=== PATIENT | male | born 1970 | race Caucasian/White ===

== ENCOUNTER 2021-08-08 14:09 | Inpatient (IN) | payer BC ==
[2021-08-08] MEDS ORDERED: Acetaminophen 325 MG TAB ONE ×2 (15:03→15:08)
[2021-08-08] MEDS ORDERED: Ondansetron PF 4 MG/2 ML Vial ONE (15:03)
[2021-08-08] MEDS ORDERED: Dexamethasone 10 MG/ML VIAL ONE (15:03)
[2021-08-08] MEDS ORDERED: cefTRIAXone\\ROCEPHIN 2 GM VIAL ONE (15:03)
[2021-08-08 15:35] LABS: #Monocytes 0.1 10x3/uL (0.0-1.1); #Neutrophils 3.2 10x3/uL (1.5-8.4); %Lymphocytes 10.5 % (18.0-47.0); %Monocytes 3.5 % (0.0-10.0); %Neutrophils 84.9 % (40.0-75.0); Mean Corpuscular HGB CONC 33.1 g/dL (32.0-36.0); Mean Corpuscular Hemoglobin 29.5 pg (27.0-33.0); Mean Corpuscular Volume 89.2 fl (81.2-95.1); Platelet Count 195 10x3/uL (150-450); RBC Distribution Width 12.9 % (11.5-14.5); Red Blood Cell (RBC) Count 4.74 10x6/uL (4.32-5.72); White Blood Cell (WBC) Count 3.7 10x3/uL (3.5-10.5)
[2021-08-08 15:43] LABS: ALT (SGPT) 37 U/L (8-55); AST (SGOT) 67 U/L (5-34); Albumin 3.8 g/dL (3.5-5.0); Alkaline Phosphatase 46 U/L (40-110); Anion Gap 19 mmol/L (10-20); BUN (Urea Nitrogen) 14 mg/dL (8.9-20.6); Bilirubin, Total 0.6 mg/dL (0.2-1.2); CRP (Inflammatory) 8.42 mg/dL (= or < 0.5); Calc. Creatinine Clearance 0 mL/min (70-130); Calcium 8.2 mg/dL (7.8-10.44); Carbon Dioxide 21 mmol/L (22-29); Chloride 103 mmol/L (98-107); Globulin 2.7 g/dL (2.4-3.5); Glucose 125 mg/dL (70-105); Magnesium 2.1 mg/dL (1.6-2.6); Potassium 4.6 mmol/L (3.5-5.1); Protein, Total 6.5 g/dL (6.0-8.3); Sodium 138 mmol/L (136-145)
[2021-08-08 15:48] LABS: D-Dimer Test 1.21 mg/L FEU (0.19-0.50); INR-International Normal Ratio 1.1; PTT 29.1 sec (22.0-33.0); Prothrombin Time 11.7 sec (9.5-12.1)
[2021-08-08 15:49] LABS: Actual Bicarbonate (HCO3a) 21.6 mEq/L (22-28); Base Excess (BEa) -1.2 mEq/L (-2.0 to +3.0); CO2 Tension 30.6 mmHg (35.0-45.0); Calcium, Ionized (arterial) 1.11 mmol/L (1.12-1.30); Carboxyhemoglobin (COHb) 0.3 gm% (0.0-3.0); Hemoglobin (Hb) 13.3 g/dL (14.0-18.0); O2 Tension (PaO2), arterial 106.1 mmHg (80.0-100.0); Potassium - ABG Lab 3.6 mmol/L (3.70-5.30); Puncture Site RRA; pH, Arterial 7.47 (7.35-7.45)
[2021-08-08 16:01] LABS: CKMB 2.8 ng/mL (0-6.6)
[2021-08-08] MEDS ORDERED: Azithromycin 500 MG VIAL ONE (16:26)
[2021-08-08 16:35] LABS: SARS-CoV-2 NAA Rapid Test DETECTED (NotDetected)
[2021-08-08] MEDS ORDERED: Ondansetron ODT 4 MG TAB PO PRN (18:42)
[2021-08-08] MEDS ORDERED: Acetaminophen 325 MG TAB PO PRN (18:42)
[2021-08-08] MEDS ORDERED: Acetaminophen 650 MG Suppository PR PRN (18:42)
[2021-08-08] MEDS ORDERED: Guaifenesin DM 100-10/5 ML UDCUP PO PRN (18:42)
[2021-08-08] MEDS ORDERED: Ondansetron PF 4 MG/2 ML Vial IVP PRN (18:42)
[2021-08-08] MEDS ORDERED: Loperamide HCl 2 MG CAP PO PRN ×2 (18:42)
[2021-08-08] MEDS ORDERED: Ventolin HFA Inhaler 60 PUFF INHALER INH PRN (18:46)
[2021-08-08 20:15] LABS: CKMB 2.6 ng/mL (0-6.6)
[2021-08-08] MEDS ORDERED: Aspirin 81 mg Enteric Coated Tablet PO SCH (22:00)
[2021-08-08] MEDS ORDERED: Melatonin 3 MG TAB PO SCH (22:00)
[2021-08-08] MEDS ORDERED: Enoxaparin Sodium 40 MG/0.4 ML SYRINGE SC SCH (22:00)
[2021-08-08] MEDS ORDERED: Enoxaparin Sodium 40 MG/0.4 ML SYRINGE ONE (23:08)
[2021-08-08] MEDS ORDERED: Aspirin Chewable 81 MG TAB ONE (23:08)
[2021-08-09] MEDS ORDERED: Ventolin HFA Inhaler 60 PUFF INHALER ONE (02:42)
[2021-08-09 03:39] LABS: Hemoglobin 13.1 g/dL (13.5-17.5); Mean Corpuscular Hemoglobin 29.7 pg (27.0-33.0); Mean Platelet Volume 9.6 fl (7.4-10.4); Platelet Count 201 10x3/uL (150-450); RBC Distribution Width 12.9 % (11.5-14.5); Red Blood Cell (RBC) Count 4.41 10x6/uL (4.32-5.72); White Blood Cell (WBC) Count 2.1 10x3/uL (3.5-10.5)
[2021-08-09 03:44] LABS: MDiff Complete? YES; Manual Diff?? YES
[2021-08-09 03:51] LABS: Anion Gap 12 mmol/L (10-20); BUN (Urea Nitrogen) 16 mg/dL (8.9-20.6); Calc. Creatinine Clearance 0 mL/min (70-130); Calcium 8.8 mg/dL (7.8-10.44); Carbon Dioxide 25 mmol/L (22-29); Chloride 107 mmol/L (98-107); Glucose 152 mg/dL (70-105); Potassium 4.4 mmol/L (3.5-5.1); Sodium 140 mmol/L (136-145)
[2021-08-09 04:01] LABS: Band 1 % (5-11); Lymphocytes 10 % (21-51); Metamyelocyte 3 % (0-0); Monocytes 6 % (0-10); Neutrophil 74 % (42-75); Reactive Lymphocytes 6 % (0-10)
[2021-08-09 04:02] LABS: Platelet Morphology Comment Appears Adequate
[2021-08-09 08:46] VITALS: BMI 33.6
[2021-08-09] MEDS ORDERED: Enoxaparin Sodium 40 MG/0.4 ML SYRINGE SC SCH (09:00)
[2021-08-09] MEDS ORDERED: Dexamethasone 10 MG/ML VIAL SLOW IVP SCH (09:00)
[2021-08-09] MEDS: Aspirin 81 mg Enteric Coated Tablet PO SCH (09:21)
[2021-08-09] MEDS: Ascorbic Acid 500 mg Chewable Tablet PO SCH (09:22)
[2021-08-09] MEDS: BARICITINIB 2 MG TAB PO SCH (09:22)
[2021-08-09] MEDS: Enoxaparin Sodium 40 MG/0.4 ML SYRINGE SC SCH ×2 (09:22→21:16)
[2021-08-09] MEDS: Zinc Sulfate 220 MG CAP PO SCH (09:22)
[2021-08-09] MEDS: Melatonin 3 MG TAB PO SCH (21:16)
[2021-08-09] MEDS: Dexamethasone 20 MG/5 ML VIAL SLOW IVP SCH (21:16)
[2021-08-10 03:42] LABS: #Monocytes 0.5 10x3/uL (0.0-1.1); #Neutrophils 5.4 10x3/uL (1.5-8.4); %Basophils 0.2 % (0.0-2.0); %Lymphocytes 7.1 % (18.0-47.0); %Monocytes 7.1 % (0.0-10.0); %Neutrophils 84.3 % (40.0-75.0); Hemoglobin 12.7 g/dL (13.5-17.5); Mean Corpuscular HGB CONC 33.2 g/dL (32.0-36.0); Mean Corpuscular Hemoglobin 29.9 pg (27.0-33.0); Mean Corpuscular Volume 89.9 fl (81.2-95.1); Mean Platelet Volume 10.1 fl (7.4-10.4); Platelet Count 235 10x3/uL (150-450); Red Blood Cell (RBC) Count 4.25 10x6/uL (4.32-5.72); White Blood Cell (WBC) Count 6.4 10x3/uL (3.5-10.5)
[2021-08-10 03:54] LABS: Anion Gap 13 mmol/L (10-20); BUN (Urea Nitrogen) 21 mg/dL (8.9-20.6); Calc. Creatinine Clearance 133 mL/min (70-130); Calcium 8.5 mg/dL (7.8-10.44); Carbon Dioxide 25 mmol/L (22-29); Chloride 108 mmol/L (98-107); Glucose 128 mg/dL (70-105); Potassium 4.3 mmol/L (3.5-5.1); Sodium 142 mmol/L (136-145)
[2021-08-10] MEDS: Zinc Sulfate 220 MG CAP PO SCH (07:58)
[2021-08-10] MEDS: Aspirin 81 mg Enteric Coated Tablet PO SCH (07:58)
[2021-08-10] MEDS: Dexamethasone 20 MG/5 ML VIAL SLOW IVP SCH ×2 (07:58→19:53)
[2021-08-10] MEDS: Enoxaparin Sodium 40 MG/0.4 ML SYRINGE SC SCH ×2 (07:58→19:56)
[2021-08-10] MEDS: Ascorbic Acid 500 mg Chewable Tablet PO SCH (07:58)
[2021-08-10] MEDS: BARICITINIB 2 MG TAB PO SCH (07:58)
[2021-08-10] MEDS: Melatonin 3 MG TAB PO SCH (19:56)
[2021-08-11 05:07] LABS: Anion Gap 13 mmol/L (10-20); BUN (Urea Nitrogen) 22 mg/dL (8.9-20.6); Calc. Creatinine Clearance 147 mL/min (70-130); Calcium 8.3 mg/dL (7.8-10.44); Carbon Dioxide 24 mmol/L (22-29); Chloride 107 mmol/L (98-107); Glucose 120 mg/dL (70-105); Potassium 4.4 mmol/L (3.5-5.1); Sodium 140 mmol/L (136-145)
[2021-08-11 05:08] LABS: ALT (SGPT) 34 U/L (8-55); AST (SGOT) 34 U/L (5-34); Albumin 3.3 g/dL (3.5-5.0); Alkaline Phosphatase 44 U/L (40-110); Bilirubin, Direct 0.3 mg/dL (0.1-0.3); Bilirubin, Total 0.7 mg/dL (0.2-1.2); Protein, Total 5.9 g/dL (6.0-8.3)
[2021-08-11 06:03] LABS: MDiff Complete? YES
[2021-08-11 06:05] LABS: Band 5 % (5-11); Lymphocytes 11 % (21-51); Monocytes 5 % (0-10); Neutrophil 77 % (42-75); Reactive Lymphocytes 2 % (0-10)
[2021-08-11 06:07] LABS: Platelet Morphology Comment Appears Adequate; RBC Morphology Normal
[2021-08-11 07:06] LABS: Mean Corpuscular HGB CONC 33.2 g/dL (32.0-36.0); Mean Corpuscular Hemoglobin 29.8 pg (27.0-33.0); Mean Corpuscular Volume 89.7 fl (81.2-95.1); Mean Platelet Volume 9.9 fl (7.4-10.4); Platelet Count 273 10x3/uL (150-450); RBC Distribution Width 12.6 % (11.5-14.5); Red Blood Cell (RBC) Count 4.36 10x6/uL (4.32-5.72); White Blood Cell (WBC) Count 7.5 10x3/uL (3.5-10.5)
[2021-08-11] MEDS: Aspirin 81 mg Enteric Coated Tablet PO SCH (07:54)
[2021-08-11] MEDS: BARICITINIB 2 MG TAB PO SCH (07:54)
[2021-08-11] MEDS: Zinc Sulfate 220 MG CAP PO SCH (07:54)
[2021-08-11] MEDS: Ascorbic Acid 500 mg Chewable Tablet PO SCH (07:55)
[2021-08-11] MEDS: Enoxaparin Sodium 40 MG/0.4 ML SYRINGE SC SCH ×2 (07:57→19:40)
[2021-08-11] MEDS: Dexamethasone 20 MG/5 ML VIAL SLOW IVP SCH ×2 (07:57→19:40)
[2021-08-11] MEDS ORDERED: Dexamethasone 20 MG/5 ML VIAL SLOW IVP SCH (10:45)
[2021-08-11] MEDS: Melatonin 3 MG TAB PO SCH (19:39)
[2021-08-12 06:18] LABS: Anion Gap 11 mmol/L (10-20); BUN (Urea Nitrogen) 24 mg/dL (8.9-20.6); Calc. Creatinine Clearance 156 mL/min (70-130); Calcium 8.3 mg/dL (7.8-10.44); Carbon Dioxide 27 mmol/L (22-29); Chloride 108 mmol/L (98-107); Glucose 117 mg/dL (70-105); Potassium 4.3 mmol/L (3.5-5.1); Sodium 142 mmol/L (136-145)
[2021-08-12 07:04] LABS: #Monocytes 0.7 10x3/uL (0.0-1.1); #Neutrophils 7.1 10x3/uL (1.5-8.4); %Basophils 0.1 % (0.0-2.0); %Lymphocytes 6.3 % (18.0-47.0); %Monocytes 7.9 % (0.0-10.0); %Neutrophils 84.5 % (40.0-75.0); Hemoglobin 12.7 g/dL (13.5-17.5); Mean Corpuscular HGB CONC 33.2 g/dL (32.0-36.0); Mean Corpuscular Hemoglobin 30.1 pg (27.0-33.0); Mean Corpuscular Volume 90.8 fl (81.2-95.1); Mean Platelet Volume 10.8 fl (7.4-10.4); Platelet Count 269 10x3/uL (150-450); RBC Distribution Width 12.8 % (11.5-14.5); Red Blood Cell (RBC) Count 4.22 10x6/uL (4.32-5.72); White Blood Cell (WBC) Count 8.5 10x3/uL (3.5-10.5)
[2021-08-12] MEDS: BARICITINIB 2 MG TAB PO SCH (08:52)
[2021-08-12] MEDS: Aspirin 81 mg Enteric Coated Tablet PO SCH (08:52)
[2021-08-12] MEDS: Enoxaparin Sodium 40 MG/0.4 ML SYRINGE SC SCH ×2 (08:52→19:19)
[2021-08-12] MEDS: Zinc Sulfate 220 MG CAP PO SCH (08:52)
[2021-08-12] MEDS: Ascorbic Acid 500 mg Chewable Tablet PO SCH (08:52)
[2021-08-12] MEDS: Dexamethasone 20 MG/5 ML VIAL SLOW IVP SCH ×2 (08:53→19:20)
[2021-08-12] MEDS: Polyethylene Glycol 3350 17 GM Packet PO SCH (08:53)
[2021-08-12] MEDS: Melatonin 3 MG TAB PO SCH (19:19)
[2021-08-13 05:20] LABS: #Monocytes 0.6 10x3/uL (0.0-1.1); #Neutrophils 7.6 10x3/uL (1.5-8.4); %Basophils 0.2 % (0.0-2.0); %Lymphocytes 5.9 % (18.0-47.0); %Monocytes 6.9 % (0.0-10.0); %Neutrophils 85.1 % (40.0-75.0); Mean Corpuscular HGB CONC 32.3 g/dL (32.0-36.0); Mean Corpuscular Hemoglobin 29.5 pg (27.0-33.0); Mean Corpuscular Volume 91.2 fl (81.2-95.1); Mean Platelet Volume 10.6 fl (7.4-10.4); Platelet Count 300 10x3/uL (150-450); RBC Distribution Width 12.6 % (11.5-14.5); Red Blood Cell (RBC) Count 4.41 10x6/uL (4.32-5.72)
[2021-08-13 05:30] LABS: Anion Gap 12 mmol/L (10-20); BUN (Urea Nitrogen) 24 mg/dL (8.9-20.6); Calc. Creatinine Clearance 156 mL/min (70-130); Calcium 8.5 mg/dL (7.8-10.44); Carbon Dioxide 28 mmol/L (22-29); Chloride 107 mmol/L (98-107); Glucose 112 mg/dL (70-105); Potassium 4.6 mmol/L (3.5-5.1); Sodium 142 mmol/L (136-145)
[2021-08-13] MEDS: Zinc Sulfate 220 MG CAP PO SCH (08:06)
[2021-08-13] MEDS: BARICITINIB 2 MG TAB PO SCH (08:06)
[2021-08-13] MEDS: Aspirin 81 mg Enteric Coated Tablet PO SCH (08:06)
[2021-08-13] MEDS: Dexamethasone 20 MG/5 ML VIAL SLOW IVP SCH ×2 (08:06→20:34)
[2021-08-13] MEDS: Enoxaparin Sodium 40 MG/0.4 ML SYRINGE SC SCH ×2 (08:07→20:34)
[2021-08-13] MEDS: Ascorbic Acid 500 mg Chewable Tablet PO SCH (08:08)
[2021-08-13] MEDS: Polyethylene Glycol 3350 17 GM Packet PO SCH (08:08)
[2021-08-13] MEDS: Melatonin 3 MG TAB PO SCH (20:34)
[2021-08-14 06:07] LABS: ALT (SGPT) 35 U/L (8-55); AST (SGOT) 16 U/L (5-34); Albumin 3.1 g/dL (3.5-5.0); Alkaline Phosphatase 46 U/L (40-110); Bilirubin, Direct 0.3 mg/dL (0.1-0.3); Bilirubin, Total 0.8 mg/dL (0.2-1.2); Protein, Total 5.6 g/dL (6.0-8.3)
[2021-08-14] MEDS: Aspirin 81 mg Enteric Coated Tablet PO SCH (08:28)
[2021-08-14] MEDS: Dexamethasone 20 MG/5 ML VIAL SLOW IVP SCH ×2 (08:29→20:44)
[2021-08-14] MEDS: Zinc Sulfate 220 MG CAP PO SCH (08:29)
[2021-08-14] MEDS: Polyethylene Glycol 3350 17 GM Packet PO SCH (08:30)
[2021-08-14] MEDS: BARICITINIB 2 MG TAB PO SCH (08:30)
[2021-08-14] MEDS: Ascorbic Acid 500 mg Chewable Tablet PO SCH (08:30)
[2021-08-14] MEDS: Enoxaparin Sodium 40 MG/0.4 ML SYRINGE SC SCH ×2 (08:30→20:44)
[2021-08-14 13:15] LABS: Hemoglobin A1c 5.7 % (4.0-6.0)
[2021-08-14] MEDS: Melatonin 3 MG TAB PO SCH (20:44)
[2021-08-15 05:41] LABS: Anion Gap 12 mmol/L (10-20); BUN (Urea Nitrogen) 22 mg/dL (8.9-20.6); Calc. Creatinine Clearance 145 mL/min (70-130); Calcium 8.6 mg/dL (7.8-10.44); Carbon Dioxide 27 mmol/L (22-29); Chloride 104 mmol/L (98-107); Glucose 107 mg/dL (70-105); Magnesium 2.1 mg/dL (1.6-2.6); Phosphorus 4.1 mg/dL (2.3-4.7); Potassium 4.2 mmol/L (3.5-5.1); Sodium 139 mmol/L (136-145)
[2021-08-15 05:44] LABS: Hemoglobin 14.2 g/dL (13.5-17.5); Mean Corpuscular HGB CONC 33.4 g/dL (32.0-36.0); Mean Corpuscular Hemoglobin 29.9 pg (27.0-33.0); Mean Corpuscular Volume 89.5 fl (81.2-95.1); Mean Platelet Volume 10.9 fl (7.4-10.4); Platelet Count 381 10x3/uL (150-450); RBC Distribution Width 12.4 % (11.5-14.5); Red Blood Cell (RBC) Count 4.75 10x6/uL (4.32-5.72); White Blood Cell (WBC) Count 8.5 10x3/uL (3.5-10.5)
[2021-08-15 06:14] LABS: MDiff Complete? YES
[2021-08-15 06:17] LABS: Band 2 % (5-11); Lymphocytes 5 % (21-51); Monocytes 10 % (0-10); Myelocyte 2 % (0-0); Neutrophil 78 % (42-75); Reactive Lymphocytes 3 % (0-10)
[2021-08-15 06:18] LABS: Platelet Morphology Comment Appears Adequate; RBC Morphology Normal
[2021-08-15] MEDS: Enoxaparin Sodium 40 MG/0.4 ML SYRINGE SC SCH (07:45)
[2021-08-15] MEDS: Polyethylene Glycol 3350 17 GM Packet PO SCH (07:45)
[2021-08-15] MEDS: Zinc Sulfate 220 MG CAP PO SCH (07:46)
[2021-08-15] MEDS: Dexamethasone 20 MG/5 ML VIAL SLOW IVP SCH (07:46)
[2021-08-15] MEDS: Aspirin 81 mg Enteric Coated Tablet PO SCH (07:47)
[2021-08-15 08:27] VITALS: BP 109/57; TEMP 98.1
[2021-08-15] MEDS ORDERED: Ascorbic Acid 500 mg Chewable Tablet PO SCH (09:00)
[2021-08-15] MEDS ORDERED: Cholecalciferol 1,000 UNITS (25 MCG) TAB PO SCH (09:00)
[2021-08-15] MEDS ORDERED: Multivit, Therapeutic 1 TAB PO SCH (09:00)
[2021-08-15] MEDS ORDERED: BARICITINIB 2 MG TAB PO SCH (15:00)
== END 2021-08-15 09:15 | disposition home or self-care (01) | DRG 177 ==
LOC: CSHERS 14:09 → CSHERHOLD 21:33 → CSHICU 08-09 08:43 → CSHTELE 08-10 11:05
PROVIDERS: ADMIT Hospitalist; ATTEND Family Medicine
PROC: 8E0ZXY6 Isolation (ICD-10-PCS; principal; 2021-08-08)
PROC: 3E0333Z Introduction of Anti-inflammatory into Peripheral Vein, Percutaneous Approach (ICD-10-PCS; 2021-08-08)
PROC: 5A0955A Assistance with Respiratory Ventilation, Greater than 96 Consecutive Hours, High Flow/Velocity Cannula (ICD-10-PCS; 2021-08-08)
PROC: XW0DXM6 Introduction of Baricitinib into Mouth and Pharynx, External Approach, New Technology Group 6 (ICD-10-PCS; 2021-08-09)
PROC: 5A09357 Assistance with Respiratory Ventilation, Less than 24 Consecutive Hours, Continuous Positive Airway Pressure (ICD-10-PCS; 2021-08-12)
DX: U07.1 COVID-19 (principal); J12.82 Pneumonia due to coronavirus disease 2019; J96.01 Acute respiratory failure with hypoxia; G47.33 Obstructive sleep apnea (adult) (pediatric); E66.9 Obesity, unspecified; Z68.33 Body mass index [BMI] 33.0-33.9, adult; Z79.899 Other long term (current) drug therapy
CPT/HCPCS: 36415; 36600; 71045; 71275; 80048; 80053; 80076; 82553; 82805; 83036; 83605; 83735; 83880; 84100; 84484; 85025; 85379; 85610; 85730; 86140; 86850; 86900; 86901; 87040; 93005; 94664; 94760; 96365; 96367; 96375; J0456; J0696; J1100; J1650; J2405; U0002

== ENCOUNTER 2022-09-20 11:33 | Outpatient (CLI) | payer BC | END 2022-09-20 11:34 | disposition home or self-care (01) | LOC: CSHLAB 11:33 | PROVIDERS: ATTEND Internal Medicine | DX: I49.9 Cardiac arrhythmia, unspecified (principal) | CPT/HCPCS: 93005; 93010 ==